=== PATIENT | male | born 1935 | race Caucasian/White ===

== ENCOUNTER 2016-09-30 07:18 | Outpatient (CLI) | payer MEDICARE ==
[2016-09-30 08:22] LABS: Albumin 4.1 g/dL (3.4-4.8); Anion Gap 15 mmol/L (10-20); BUN (Urea Nitrogen) 58 mg/dL (8.4-25.7); BUN/Creatinine Ratio 11.86; Calc. Creatinine Clearance 0 mL/min (70-130); Calcium 9.1 mg/dL (7.8-10.44); Carbon Dioxide 27 mmol/L (23-31); Chloride 105 mmol/L (98-107); Estimated GFR-MDRD 11; Glucose 112 mg/dL (83-110); Phosphorus 4.6 mg/dL (2.3-4.7); Sodium 142 mmol/L (136-145)
[2016-09-30 08:45] LABS: #Eosinphils 0.3 thou/uL (0.0-0.7); #Lymphocytes 1.5 thou/uL (1.20-3.40); #Monocytes 0.7 thou/uL (0.11-0.59); #Neutrophils 4.8 thou/uL (1.40-6.50); %Basophils 0.6 % (0.0-1.0); %Lymphocytes 20.3 % (21.0-51.0); %Monocytes 9.3 % (0.0-10.0); %Neutrophils 65.9 % (42.0-75.0); Hemoglobin 11.9 g/dL (14.0-18.0); Mean Corpuscular HGB CONC 32.4 g/dL (32.0-36.0); Mean Corpuscular Hemoglobin 32.5 pg (27.0-31.0); Mean Platelet Volume 10.6 fL (7.4-10.4); Platelet Count 157 thou/uL (130-400); RBC Distribution Width 11.7 % (11.5-14.5); Red Blood Cell (RBC) Count 3.67 mill/uL (4.70-6.10); White Blood Cell (WBC) Count 7.3 thou/uL (4.8-10.8)
== END 2016-09-30 07:19 | disposition home or self-care (01) ==
LOC: NAV LAB 07:18
PROVIDERS: ATTEND Internal Medicine Nephrology
DX: E78.5 Hyperlipidemia, unspecified (principal); N18.4 Chronic kidney disease, stage 4 (severe); Q61.2 Polycystic kidney, adult type; D63.1 Anemia in chronic kidney disease; M19.90 Unspecified osteoarthritis, unspecified site; J44.9 Chronic obstructive pulmonary disease, unspecified; M10.9 Gout, unspecified; R80.9 Proteinuria, unspecified; N40.1 Benign prostatic hyperplasia with lower urinary tract symptoms
CPT/HCPCS: 36415; 80069; 85025

== ENCOUNTER 2016-12-19 07:41 | Outpatient (CLI) | payer MEDICARE ==
[2016-12-19 08:32] LABS: #Basophils 0.1 thou/uL (0.0-0.2); #Eosinphils 0.3 thou/uL (0.0-0.7); #Lymphocytes 1.3 thou/uL (1.20-3.40); #Monocytes 0.6 thou/uL (0.11-0.59); #Neutrophils 4.7 thou/uL (1.40-6.50); %Eosinophils 4.1 % (0.0-10.0); %Lymphocytes 18.9 % (21.0-51.0); Hemoglobin 11.6 g/dL (14.0-18.0); Mean Corpuscular HGB CONC 31.6 g/dL (32.0-36.0); Mean Corpuscular Hemoglobin 30.8 pg (27.0-31.0); Mean Corpuscular Volume 97.3 fl (80.0-94.0); Mean Platelet Volume 11.1 fL (7.4-10.4); Platelet Count 140 thou/uL (130-400); RBC Distribution Width 11.7 % (11.5-14.5); Red Blood Cell (RBC) Count 3.78 mill/uL (4.70-6.10); White Blood Cell (WBC) Count 7.1 thou/uL (4.8-10.8)
[2016-12-19 08:47] LABS: Albumin 4.2 g/dL (3.4-4.8); Anion Gap 17 mmol/L (10-20); BUN (Urea Nitrogen) 52 mg/dL (8.4-25.7); BUN/Creatinine Ratio 10.97; Calc. Creatinine Clearance 0 mL/min (70-130); Calcium 9.1 mg/dL (7.8-10.44); Carbon Dioxide 23 mmol/L (23-31); Chloride 109 mmol/L (98-107); Estimated GFR-MDRD 12; Glucose 101 mg/dL (83-110); Phosphorus 4.6 mg/dL (2.3-4.7); Potassium 5.2 mmol/L (3.5-5.1); Sodium 144 mmol/L (136-145); Uric Acid 8.9 mg/dL (3.5-7.2)
== END 2016-12-19 07:42 | disposition home or self-care (01) ==
LOC: NAV LAB 07:41
PROVIDERS: ATTEND Internal Medicine Nephrology
DX: N18.4 Chronic kidney disease, stage 4 (severe) (principal); Q61.2 Polycystic kidney, adult type; D63.1 Anemia in chronic kidney disease; M19.90 Unspecified osteoarthritis, unspecified site; J44.9 Chronic obstructive pulmonary disease, unspecified; E78.5 Hyperlipidemia, unspecified; M10.9 Gout, unspecified; R80.9 Proteinuria, unspecified; N40.1 Benign prostatic hyperplasia with lower urinary tract symptoms
CPT/HCPCS: 36415; 80069; 82306; 83970; 84550; 85025

== ENCOUNTER 2017-02-13 07:47 | Outpatient (CLI) | payer MEDICARE ==
[2017-02-13 08:09] LABS: Hemoglobin 11.5 g/dL (14.0-18.0); Mean Corpuscular HGB CONC 31.5 g/dL (32.0-36.0); Mean Corpuscular Hemoglobin 30.3 pg (27.0-31.0); Mean Corpuscular Volume 96.3 fl (80.0-94.0); Mean Platelet Volume 10.2 fL (7.4-10.4); Platelet Count 136 thou/uL (130-400); RBC Distribution Width 11.5 % (11.5-14.5); Red Blood Cell (RBC) Count 3.78 mill/uL (4.70-6.10); White Blood Cell (WBC) Count 7.1 thou/uL (4.8-10.8)
[2017-02-13 08:20] LABS: Albumin 4.1 g/dL (3.4-4.8); Anion Gap 16 mmol/L (10-20); BUN (Urea Nitrogen) 47 mg/dL (8.4-25.7); BUN/Creatinine Ratio 10.04; Calc. Creatinine Clearance 0 mL/min (70-130); Calcium 9.2 mg/dL (7.8-10.44); Carbon Dioxide 26 mmol/L (23-31); Chloride 104 mmol/L (98-107); Estimated GFR-MDRD 12; Glucose 103 mg/dL (83-110); Potassium 4.9 mmol/L (3.5-5.1); Sodium 141 mmol/L (136-145)
== END 2017-02-13 07:48 | disposition home or self-care (01) ==
LOC: NAV LAB 07:47
PROVIDERS: ATTEND Internal Medicine Nephrology
DX: N18.4 Chronic kidney disease, stage 4 (severe) (principal); E78.5 Hyperlipidemia, unspecified; N40.1 Benign prostatic hyperplasia with lower urinary tract symptoms; D63.1 Anemia in chronic kidney disease; J44.9 Chronic obstructive pulmonary disease, unspecified; Q61.2 Polycystic kidney, adult type; M19.90 Unspecified osteoarthritis, unspecified site; M10.9 Gout, unspecified; R80.9 Proteinuria, unspecified
CPT/HCPCS: 36415; 80069; 85027

== ENCOUNTER 2019-05-20 14:54 | Emergency (ER) | payer MEDICARE ==
--- NOTE | 2019-05-20 15:44 | RAD ---
Exam:3 views right ankle HISTORY: Trauma. Pain. COMPARISON: None FINDINGS: Distal fibula fracture. Medial malleolus fracture. Associated soft tissue swelling and defo rmity. IMPRESSION: Fractures as detailed above. Dedicated right tibia and fibula radiograph is recommended t o evaluate for proximal injury. CODE T
--- NOTE | 2019-05-20 16:11 | RAD ---
Exam:2 views right tibia-fibula HISTORY: Proximal fibula and medial malleolus fracture COMPARISON: None FINDINGS: There is a minimally displaced mid fibula diaphyseal fracture. IMPRESSION: 1. Mid fibula diaphyseal fracture. 2. Posterior malleolus fracture.
[2019-05-20 16:48] LABS: #Eosinphils 0.1 thou/uL (0.0-0.7); #Monocytes 0.8 thou/uL (0.11-0.59); #Neutrophils 8.9 thou/uL (1.40-6.50); %Basophils 0.3 % (0.0-1.0); %Eosinophils 1.3 % (0.0-10.0); %Lymphocytes 9.3 % (21.0-51.0); Hemoglobin 10.6 g/dL (14.0-18.0); Mean Corpuscular HGB CONC 31.3 g/dL (32.0-36.0); Mean Corpuscular Hemoglobin 31.9 pg (27.0-31.0); Mean Platelet Volume 9.3 fL (7.4-10.4); Platelet Count 164 thou/uL (130-400); RBC Distribution Width 12.2 % (11.5-14.5); Red Blood Cell (RBC) Count 3.32 mill/uL (4.70-6.10); White Blood Cell (WBC) Count 10.8 thou/uL (4.8-10.8)
[2019-05-20 17:12] LABS: ALT (SGPT) 20 U/L (8-55); AST (SGOT) 23 U/L (5-34); Albumin 4.3 g/dL (3.4-4.8); Alkaline Phosphatase 47 U/L (40-110); Anion Gap 16 mmol/L (10-20); BUN (Urea Nitrogen) 63 mg/dL (8.4-25.7); Bilirubin, Total 0.4 mg/dL (0.2-1.2); Calc. Creatinine Clearance 0 mL/min (70-130); Calcium 9.3 mg/dL (7.8-10.44); Chloride 109 mmol/L (98-107); Estimated GFR-MDRD 10; Globulin 2.6 g/dL (2.4-3.5); Glucose 100 mg/dL (83-110); Potassium 4.6 mmol/L (3.5-5.1); Protein, Total 6.9 g/dL (5.8-8.1); Sodium 139 mmol/L (136-145)
--- NOTE | 2019-05-20 17:37 | RAD ---
RADIOGRAPH CHEST 1 VIEW: DATE: 05/20/2019 HISTORY: 83-year-old male for preoperative clearance FINDINGS: There are no airspace densities, pulmonary edema, pneumothorax, or cardiomegaly. The lateral costophr enic angles are sharp. IMPRESSION: No acute cardiopulmonary findings.
[2019-05-20 18:28] LABS: Carbon Dioxide 19 mmol/L (23-31)
== END 2019-05-20 17:37 | disposition short-term general hospital (02) ==
LOC: NAV ERS 14:54
DX: S82.851A Displaced trimalleolar fracture of right lower leg, initial encounter for closed fracture (principal); I10 Essential (primary) hypertension; Q61.3 Polycystic kidney, unspecified; V09.09XA Pedestrian injured in nontraffic accident involving other motor vehicles, initial encounter
CPT/HCPCS: 29515; 36415; 71045; 80053; 85025; 93005

== ENCOUNTER 2020-09-10 08:51 | Emergency (ER) | payer MEDICARE | END 2020-09-10 10:15 | disposition home or self-care (01) | LOC: NAV ERS 08:51 | DX: M25.532 Pain in left wrist (principal); I10 Essential (primary) hypertension; W19.XXXA Unspecified fall, initial encounter ==

== ENCOUNTER 2021-01-25 08:59 | Emergency (ER) | payer MEDICARE ==
[2021-01-25] MEDS ORDERED: Aspirin Chewable 81 MG TAB ONE (09:25)
[2021-01-25] MEDS ORDERED: Nitroglycerin 0.4 MG TAB (25 Tab Bottle) ONE (09:25)
[2021-01-25 10:00] LABS: Prothrombin Time 13.1 sec (12.0-14.7)
[2021-01-25 10:01] LABS: PTT 29.2 sec (22.9-36.1)
[2021-01-25 10:03] LABS: #Eosinphils 0.3 thou/uL (0.0-0.7); #Monocytes 0.7 thou/uL (0.11-0.59); #Neutrophils 5.6 thou/uL (1.40-6.50); %Basophils 0.5 % (0.0-1.0); %Eosinophils 3.4 % (0.0-10.0); %Lymphocytes 13.2 % (21.0-51.0); %Monocytes 8.7 % (0.0-10.0); %Neutrophils 74.3 % (42.0-75.0); Hemoglobin 10.5 g/dL (14.0-18.0); Mean Corpuscular Hemoglobin 31.3 pg (27.0-31.0); Mean Platelet Volume 9.1 fL (7.4-10.4); Platelet Count 163 thou/uL (130-400); RBC Distribution Width 12.3 % (11.5-14.5); Red Blood Cell (RBC) Count 3.36 mill/uL (4.70-6.10); White Blood Cell (WBC) Count 7.5 thou/uL (4.8-10.8)
[2021-01-25 10:04] LABS: Hypochromia MODERATE=16-30 cells (100X) (0-5/hpf); MDiff Complete? YES; Macrocytosis MODERATE=16-30 cells (100X) (0-5/hpf); Platelet Morphology Comment Appears Adequate; Tear Drops SLIGHT = 2-5 cells (100X) (0-1/hpf)
[2021-01-25 10:09] LABS: ALT (SGPT) 14 U/L (8-55); AST (SGOT) 19 U/L (5-34); Alkaline Phosphatase 57 U/L (40-110); Anion Gap 15 mmol/L (10-20); BUN (Urea Nitrogen) 54 mg/dL (8.4-25.7); Bilirubin, Total 0.4 mg/dL (0.2-1.2); Calc. Creatinine Clearance 0 mL/min (70-130); Calcium 8.8 mg/dL (7.8-10.44); Carbon Dioxide 19 mmol/L (23-31); Chloride 109 mmol/L (98-107); Glucose 128 mg/dL (83-110); Potassium 4.7 mmol/L (3.5-5.1); Sodium 138 mmol/L (136-145)
[2021-01-25] MEDS ORDERED: Morphine 4 MG/ML VIAL ONE ×2 (10:37→15:19)
[2021-01-26] MEDS ORDERED: Ketorolac Tromethamine 30 MG/ML VIAL ONE (01:05)
== END 2021-01-26 08:45 | disposition home or self-care (01) ==
LOC: NAV ERS 08:59
DX: R07.9 Chest pain, unspecified (principal); N28.9 Disorder of kidney and ureter, unspecified; I10 Essential (primary) hypertension; Z79.899 Other long term (current) drug therapy
CPT/HCPCS: 36415; 71045; 80053; 83880; 84484; 85025; 85610; 85730; 93005; 94760; 96374; 96376; J1885; J2270

== ENCOUNTER 2021-12-09 10:19 | Emergency (ER) | payer OTHER, MEDICARE ==
[2021-12-09] MEDS ORDERED: Acetaminophen 500 MG TAB ONE (11:40)
== END 2021-12-09 11:48 | disposition home or self-care (01) ==
LOC: NAV ERS 10:19
DX: S53.401A Unspecified sprain of right elbow, initial encounter (principal); Z79.899 Other long term (current) drug therapy; W01.0XXA Fall on same level from slipping, tripping and stumbling without subsequent striking against object, initial encounter

== ENCOUNTER 2024-09-12 08:04 | Emergency (ER) | payer MEDICARE, OTHER ==
[2024-09-12] MEDS ORDERED: Pantoprazole 40 MG VIAL ONE ×2 (08:36→09:25)
[2024-09-12] MEDS ORDERED: Ondansetron PF 4 MG/2 ML Vial ONE (08:36)
[2024-09-12] MEDS ORDERED: Morphine 2 MG/ML VIAL ONE (08:36)
[2024-09-12 08:58] LABS: ALT (SGPT) 15 U/L (Less than 45); AST (SGOT) 26 U/L (11-34); Albumin 3.7 g/dL (3.1-4.5); Alkaline Phosphatase 54 U/L (40-110); Anion Gap 16 mmol/L (10-20); BUN (Urea Nitrogen) 100 mg/dL (8.4-25.7); Bilirubin, Total 0.6 mg/dL (0.3-1.2); Calc. Creatinine Clearance 0 mL/min (70-130); Calcium 8.8 mg/dL (7.8-10.44); Carbon Dioxide 17 mmol/L (23-31); Chloride 109 mmol/L (98-107); Estimated GFR 9; Globulin 3.2 g/dL (2.4-3.5); Glucose 120 mg/dL (83-110); Lipase 58 U/L (8-78); Potassium 4.1 mmol/L (3.5-5.1); Protein, Total 6.9 g/dL (5.8-8.1); Sodium 138 mmol/L (136-145)
[2024-09-12] MEDS ORDERED: Sodium Chloride 0.9% 500 ML ONE (09:25)
[2024-09-12 09:31] LABS: #Basophils 0.1 thou/uL (0.0-0.2); #Eosinophils 0.1 thou/uL (0.0-0.7); #Monocytes 1.1 thou/uL (0.11-0.59); #Neutrophils 13.9 thou/uL (1.40-6.50); %Basophils 0.3 % (0.0-1.0); %Eosinophils 0.8 % (0.0-10.0); %Lymphocytes 6.4 % (21.0-51.0); %Monocytes 6.8 % (0.0-10.0); %Neutrophils 85.7 % (42.0-75.0); Hematocrit 24.2 % (42.0-52.0); Hemoglobin 8.5 g/dL (14.0-18.0); Mean Corpuscular HGB CONC 35.2 g/dL (32.0-36.0); Mean Corpuscular Hemoglobin 33.1 pg (27.0-31.0); Mean Corpuscular Volume 94.1 fl (78.0-98.0); Mean Platelet Volume 9.1 fL (7.4-10.4); Platelet Count 132 10x3/uL (130-400); Red Blood Cell (RBC) Count 2.57 mill/uL (4.70-6.10); White Blood Cell (WBC) Count 16.2 10x3/uL (4.8-10.8)
[2024-09-12] MEDS ORDERED: metroNIDAZOLE 500 MG (100 mL) BAG ONE (11:00)
[2024-09-12] MEDS ORDERED: Cipro 250 MG TAB ONE (11:00)
== END 2024-09-12 11:48 | disposition short-term general hospital (02) ==
LOC: NAV ERS 08:04
DX: K57.32 Diverticulitis of large intestine without perforation or abscess without bleeding (principal); N18.9 Chronic kidney disease, unspecified; D63.1 Anemia in chronic kidney disease
CPT/HCPCS: 74176; 80053; 83605; 83690; 85025; 87040; 94760; J2272; J2405; J2470; J7030; 82274; 96361; 96365; 96375; 96376

== ENCOUNTER 2024-12-26 07:21 | Emergency (ER) | payer MEDICARE ==
[2024-12-26 07:59] LABS: #Basophils 0.1 thou/uL (0.0-0.2); #Eosinophils 0.3 thou/uL (0.0-0.7); #Lymphocytes 1.8 thou/uL (1.20-3.40); #Monocytes 1.1 thou/uL (0.11-0.59); #Neutrophils 9.2 thou/uL (1.40-6.50); %Basophils 0.6 % (0.0-1.0); %Eosinophils 2.6 % (0.0-10.0); %Lymphocytes 14.1 % (21.0-51.0); %Neutrophils 73.8 % (42.0-75.0); Hematocrit 27.9 % (42.0-52.0); Hemoglobin 9.1 g/dL (14.0-18.0); Mean Corpuscular HGB CONC 32.4 g/dL (32.0-36.0); Mean Corpuscular Hemoglobin 29.5 pg (27.0-31.0); Mean Platelet Volume 5.9 fL (7.4-10.4); Platelet Count 246 10x3/uL (130-400); RBC Distribution Width 12.8 % (11.5-14.5); Red Blood Cell (RBC) Count 3.07 mill/uL (4.70-6.10); White Blood Cell (WBC) Count 12.5 10x3/uL (4.8-10.8)
[2024-12-26] MEDS ORDERED: Aspirin Chewable 81 MG TAB ONE (08:00)
[2024-12-26] MEDS ORDERED: Nitroglycerin 0.4 MG TAB 1 EACH ONE (08:00)
[2024-12-26] MEDS ORDERED: Sodium Chloride 0.9% 1,000 ML ONE (08:06)
[2024-12-26 08:10] LABS: ALT (SGPT) 14 U/L (Less than 45); AST (SGOT) 18 U/L (11-34); Albumin 2.3 g/dL (3.1-4.5); Alkaline Phosphatase 37 U/L (40-110); Anion Gap 18 mmol/L (10-20); BUN (Urea Nitrogen) 117 mg/dL (8.4-25.7); Bilirubin, Total 0.3 mg/dL (0.3-1.2); Calc. Creatinine Clearance 0 mL/min (70-130); Calcium 7.5 mg/dL (7.8-10.44); Carbon Dioxide 14 mmol/L (23-31); Chloride 111 mmol/L (98-107); Estimated GFR 5; Globulin 3.4 g/dL (2.4-3.5); Glucose 90 mg/dL (83-110); Potassium 4.8 mmol/L (3.5-5.1); Protein, Total 5.7 g/dL (5.8-8.1); Sodium 138 mmol/L (136-145)
[2024-12-26 08:17] LABS: Troponin I 0.029 ng/mL (< 0.028)
[2024-12-26] MEDS ORDERED: Sodium Bicarb 50 MEQ/50 ML Abboject 8.4% SYRINGE ONE ×2 (08:49→09:02)
[2024-12-26 08:58] LABS: Bilirubin Negative (Negative); Blood, Urine Small (Negative); Clarity Clear (Clear); Glucose, Urine (Dipstick) 100 mg/dL (Negative); Ketone, Urine Negative (Negative); Leukocyte Moderate (Negative); Nitrite Negative (Negative); Protein, Urine (Dipstick) 30 mg/dL (Neg-Trace); Urobilinogen 0.2 mg/dL (Less than 2); pH, Urine 6.5 (5.0-9.0)
[2024-12-26 09:02] LABS: Bacteria/HPF Rare-Few HPF (None Seen); CAUTI Indications for Culture Immunosuppressed; RBC/HPF 0-3 HPF (0-3); Squamous Epithelial 0-3 HPF (0-3)
[2024-12-26 09:04] LABS: Urine Culture Reflex Yes Yes
[2024-12-26 09:07] LABS: Base Excess-Venous -10.9 mmol/L (-2.0 to 3.0); Bicarbonate (HCO3v) 14.6 mmol/L (22.0-28.0); CO2 Tension (PvCO2) 30.2 mmHg (42.0-51.0); Calcium, Ionized 1.04 mmol/L (1.15-1.33); Chloride 112 mmol/L (98-107); Hemoglobin - Calc 8.4 g/dL (14.0-18.0); Potassium 4.5 mmol/L (3.5-5.1); Sodium 139 mmol/L (138-145); T. Carbon Dioxide 15.5 mmol/L (22.0-28.0); vO2 Saturation-calc 97.9 % (60.0-85.0)
[2024-12-26] MEDS ORDERED: Meropenem 1 GM VIAL ONE (09:23)
== END 2024-12-26 10:00 | disposition short-term general hospital (02) ==
LOC: NAV ERS 07:21
DX: N17.9 Acute kidney failure, unspecified (principal); R07.9 Chest pain, unspecified; I12.9 Hypertensive chronic kidney disease with stage 1 through stage 4 chronic kidney disease, or unspecified chronic kidney disease; E11.22 Type 2 diabetes mellitus with diabetic chronic kidney disease; N18.9 Chronic kidney disease, unspecified; J44.9 Chronic obstructive pulmonary disease, unspecified
CPT/HCPCS: 36415; 71045; 80053; 81001; 82330; 82803; 83880; 84484; 85025; 87086; 93005; 96361; 96365; 96375; 96376; J2185; J7030